=== PATIENT | female | born 1945 | race Caucasian/White ===

== ENCOUNTER 2020-08-31 20:01 | Inpatient (IN) | payer MEDICARE ==
[~2020-08-31] VITALS: Ht 162.6 cm; Wt 46.3 kg
[~2020-08-31 20:01] MED LIST changes: -OXYCODONE HCL20 M1 PO; -PROPOFOL IV EMULSION 10 MG/ML 20 ML VIAL ONE
[2020-08-31 20:58] LABS: BASOPHILS % 0.7 % (0.0-1.0); EOSINOPHILS # (AUTO) 0.1 (0.0-0.4); EOSINOPHILS % 2.7 % (0.0-6.0); HEMATOCRIT 33.5 % (34.2-44.1); HEMOGLOBIN 10.4 g/dL (12.0-16.0); LYMPHOCYTES # (AUTO) 1.1 (1.0-3.2); LYMPHOCYTES % 24.4 % (18.0-39.1); MEAN CORPUSCULAR HEMOGLOBIN 25.4 pg (28-32); MEAN CORPUSCULAR VOLUME 81.7 fL (81-99); MONOCYTES # (AUTO) 0.7 (0.2-0.8); MONOCYTES % 16.1 % (4.4-11.3); NEUTROPHILS # (AUTO) 2.5 (2.1-6.9); NEUTROPHILS % 55.9 % (38.7-80.0); PLATELET COUNT 312 x10e3/uL (140-360); RED CELL DISTRIBUTION WIDTH 16.6 % (11.7-14.4)
[2020-08-31 21:16] LABS: ALANINE AMINOTRANSFERASE 14 IU/L (0-55); ALBUMIN 3.9 g/dL (3.5-5.0); ALBUMIN/GLOBULIN RATIO 1.1 (0.8-2.0); ALKALINE PHOSPHATASE 75 IU/L (40-150); ANION GAP 14.1 mmol/L (8-16); BLOOD UREA NITROGEN 18 mg/dL (7-26); BUN/CREATININE RATIO 24 (6-25); CALCIUM 8.8 mg/dL (8.4-10.2); CARBON DIOXIDE 25 mmol/L (22-29); CHLORIDE 104 mmol/L (98-107); CREATININE, SERUM 0.76 mg/dL (0.57-1.11); EST GLOMERULAR FILTRATION RATE > 60 ML/MIN (60-); GLUCOSE 74 mg/dL (74-118); POTASSIUM 3.1 mmol/L (3.5-5.1); SODIUM 140 mmol/L (136-145)
[2020-08-31] MEDS ORDERED: ONDANSETRON HCL INJ 2MG/ML 2ML 2 MG/ML VIAL IV PRN (22:15)
[2020-08-31] MEDS ORDERED: KCL 20MEQ/.9 SOD CHL 1,000 ML IV ONE (22:15)
[2020-08-31 23:15] VITALS: BP 173/103
[2020-08-31 23:38] VITALS: BP 159/91
[2020-09-01] MEDS ORDERED: OXYCODONE HCL20 M1 PO
[2020-09-01] MEDS ORDERED: OXYCODONE HCL 20 MG TAB CR PO PRN (00:15)
[2020-09-01] MEDS ORDERED: HYDROXYZINE PAMOATE 25 MG CAP PO PRN (00:15)
[2020-09-01] MEDS: PROPRANOLOL HCL 80 MG CAPCR PO SCH ×3 (00:28→20:30)
[2020-09-01] MEDS: OXYCODONE HCL IR 5 MG TAB PO PRN ×3 (00:56→20:29)
[2020-09-01] MEDS: TEMAZEPAM 15 MG CAP PO SCH ×2 (00:56→20:29)
[2020-09-01 00:57] VITALS: BP 159/91
[2020-09-01] MEDS: LEVOTHYROXINE SODIUM 88 MCG TAB PO SCH (07:30)
[2020-09-01 08:25] VITALS: BP 162/96
[2020-09-01 08:33] VITALS: BP 162/96
[2020-09-01] MEDS: SERTRALINE HCL 50 MG TAB PO SCH (09:00)
[2020-09-01] MEDS: PRIMIDONE 50 MG TAB PO SCH ×2 (09:00→18:37)
[2020-09-01] MEDS: ASPIRIN 81 MG CHEW TAB PO SCH (09:00)
[2020-09-01] MEDS: BUPROPION HCL SR 150 MG TAB PO SCH ×2 (09:00→18:38)
[2020-09-01] MEDS ORDERED: PNEUMOCOCCAL VACCINE POLYVALENT 23 MCG/0.5 ML VIAL IM SCH (10:00)
[2020-09-01 10:12] LABS: THYROID STIMULATING HORMONE 7.909 uIU/mL (0.350-4.940)
[2020-09-01] MEDS: HYDRALAZINE HCL 20 MG/ML VIAL IV PRN ×2 (11:43→18:39)
[2020-09-01 11:54] LABS: CHOL/HDL RATIO 2.4 (3.0-3.6)
[2020-09-01 12:27] VITALS: BP 186/112
[2020-09-01] MEDS ORDERED: ALBUTEROL/IPRATROPIUM 3 ML NEB NEB PRN (15:15)
[2020-09-01] MEDS ORDERED: SALIVA SUBSTITUTE 45 ML LIQD MM PRN (15:30)
[2020-09-01 16:03] VITALS: BP 183/113
[2020-09-01] MEDS: CLONIDINE HCL 0.1 MG TAB PO PRN (18:38)
[2020-09-01] MEDS ORDERED: PROPRANOLOL HCL 80 MG CAPCR PO SCH (21:00)
[2020-09-01] MEDS ORDERED: TEMAZEPAM 15 MG CAP PO SCH (21:00)
[2020-09-02] VITALS (9 sets, daily range): BP systolic 102–164; BP diastolic 76–107
[2020-09-02 05:59] LABS: BASOPHILS % 0.8 % (0.0-1.0); EOSINOPHILS # (AUTO) 0.1 (0.0-0.4); EOSINOPHILS % 2.2 % (0.0-6.0); HEMATOCRIT 38.9 % (34.2-44.1); HEMOGLOBIN 12.2 g/dL (12.0-16.0); LYMPHOCYTES # (AUTO) 1.1 (1.0-3.2); LYMPHOCYTES % 21.3 % (18.0-39.1); MEAN CORPUSCULAR HEMOGLOBIN 25.8 pg (28-32); MEAN CORPUSCULAR HGB CONC 31.4 g/dL (31-35); MEAN CORPUSCULAR VOLUME 82.2 fL (81-99); MONOCYTES # (AUTO) 0.8 (0.2-0.8); MONOCYTES % 15.4 % (4.4-11.3); NEUTROPHILS % 60.1 % (38.7-80.0); PLATELET COUNT 380 x10e3/uL (140-360); RED BLOOD COUNT 4.73 x10e6/uL (3.6-5.1); RED CELL DISTRIBUTION WIDTH 16.4 % (11.7-14.4)
[2020-09-02] MEDS: HYDRALAZINE HCL 20 MG/ML VIAL IV PRN ×3 (06:08→15:39)
[2020-09-02 06:17] LABS: CALCIUM 9.9 mg/dL (8.4-10.2); CREATININE, SERUM 0.96 mg/dL (0.57-1.11)
[2020-09-02] MEDS ORDERED: POTASSIUM CHLORIDE 20MEQ/100ML 100 ML IV ONE (07:00)
[2020-09-02] MEDS: ASPIRIN 81 MG CHEW TAB PO SCH (08:29)
[2020-09-02] MEDS: PROPRANOLOL HCL 80 MG CAPCR PO SCH ×2 (08:30→20:50)
[2020-09-02] MEDS: BUPROPION HCL SR 150 MG TAB PO SCH ×2 (08:30→17:27)
[2020-09-02] MEDS: PRIMIDONE 50 MG TAB PO SCH ×2 (08:30→17:27)
[2020-09-02] MEDS: SERTRALINE HCL 50 MG TAB PO SCH (08:30)
[2020-09-02] MEDS: LEVOTHYROXINE SODIUM 88 MCG TAB PO SCH (08:31)
[2020-09-02] MEDS ORDERED: SODIUM CHLORIDE 0.9% 250ML 250 ML ONE (08:48)
[2020-09-02] MEDS ORDERED: SODIUM CHLORIDE 0.9% 50ML 0 ML ONE (09:50)
[2020-09-02] MEDS ORDERED: IOPAMIDOL 370 MG/ML 200 ML INFUS..BTL INJ ONE (09:51)
[2020-09-02] MEDS: CLONIDINE HCL 0.1 MG TAB PO PRN (15:39)
[2020-09-02] MEDS ORDERED: HYDRALAZINE HCL 20 MG/ML VIAL IV PRN (16:00)
[2020-09-02] MEDS: TEMAZEPAM 15 MG CAP PO SCH (20:51)
[2020-09-02] MEDS: OXYCODONE HCL IR 5 MG TAB PO PRN (22:15)
[2020-09-03] VITALS (7 sets, daily range): BP systolic 101–127; BP diastolic 71–84
[2020-09-03 07:01] LABS: ANION GAP 15.2 mmol/L (8-16); CALCIUM 9.3 mg/dL (8.4-10.2); CREATININE, SERUM 1.49 mg/dL (0.57-1.11); POTASSIUM 3.2 mmol/L (3.5-5.1)
[2020-09-03] MEDS: LEVOTHYROXINE SODIUM 88 MCG TAB PO SCH (08:28)
[2020-09-03] MEDS: PRIMIDONE 50 MG TAB PO SCH (08:28)
[2020-09-03] MEDS: SERTRALINE HCL 50 MG TAB PO SCH (08:28)
[2020-09-03] MEDS: BUPROPION HCL SR 150 MG TAB PO SCH (08:28)
[2020-09-03] MEDS: ASPIRIN 81 MG CHEW TAB PO SCH (08:28)
[2020-09-03] MEDS: PROPRANOLOL HCL 80 MG CAPCR PO SCH ×2 (08:28→08:29)
[2020-09-03] MEDS ORDERED: POTASSIUM CHLORIDE 20MEQ/100ML 100 ML IV ONE (09:30)
[2020-09-03] MEDS ORDERED: PNEUMOCOCCAL VACCINE POLYVALENT 23 MCG/0.5 ML VIAL IM SCH (10:00)
[2020-09-03] MEDS ORDERED: SODIUM CHLORIDE 0.9% 250ML 250 ML ONE (12:33)
== END 2020-09-03 14:18 | disposition home or self-care (01) | DRG 206 ==
LOC: ER 20:30 → ERHOLD 22:14 → MED/SURG3 23:23 → OBSVTOIN 09-02 07:29
PROVIDERS: ADMIT Internal Medicine; ATTEND Internal Medicine
PROC: 0DJ08ZZ Inspection of Upper Intestinal Tract, Via Natural or Artificial Opening Endoscopic (ICD-10-PCS; principal; 2020-09-02)
DX: J70.0 Acute pulmonary manifestations due to radiation (principal); E44.0 Moderate protein-calorie malnutrition; Z68.1 Body mass index [BMI] 19.9 or less, adult; K22.2 Esophageal obstruction; J69.0 Pneumonitis due to inhalation of food and vomit; Z85.818 Personal history of malignant neoplasm of other sites of lip, oral cavity, and pharynx; I10 Essential (primary) hypertension; R13.10 Dysphagia, unspecified; R53.81 Other malaise; Z11.59 Encounter for screening for other viral diseases; Z92.3 Personal history of irradiation; Y84.2 Radiological procedure and radiotherapy as the cause of abnormal reaction of the patient, or of later complication, without mention of misadventure at the time of the procedure; E03.9 Hypothyroidism, unspecified
CPT/HCPCS: 36415; 43235; 70491; 71045; 71046; 74220; 74230; 80048; 80053; 80061; 83540; 83880; 84443; 84466; 84484; 85025; 90732; 93005; 93306; 97139; 99283; G0378; J0360; J2405; J3480; J7050; Q0177; Q9967; U0002

== ENCOUNTER → 2020-08-31 | Day surgery (SDC) | payer MEDICARE, OTHER ==
[2020-08-28 16:18] LABS: BASOPHILS % 0.7 % (0.0-1.0); EOSINOPHILS # (AUTO) 0.1 (0.0-0.4); EOSINOPHILS % 3.5 % (0.0-6.0); HEMATOCRIT 35.3 % (34.2-44.1); HEMOGLOBIN 10.9 g/dL (12.0-16.0); LYMPHOCYTES # (AUTO) 0.9 (1.0-3.2); LYMPHOCYTES % 22.8 % (18.0-39.1); MEAN CORPUSCULAR HEMOGLOBIN 25.5 pg (28-32); MEAN CORPUSCULAR HGB CONC 30.9 g/dL (31-35); MEAN CORPUSCULAR VOLUME 82.7 fL (81-99); MONOCYTES # (AUTO) 0.6 (0.2-0.8); MONOCYTES % 14.1 % (4.4-11.3); NEUTROPHILS # (AUTO) 2.4 (2.1-6.9); NEUTROPHILS % 58.7 % (38.7-80.0); PLATELET COUNT 343 x10e3/uL (140-360); RED BLOOD COUNT 4.27 x10e6/uL (3.6-5.1)
[~2020-08-31] MED LIST: ASPIRIN81 MG PO; BUPROPION HCL150 MG PO; CLONIDINE HCL0.1 M1 PO; HYDROXYZINE PAM25 MG PO; LEVOTHYROXINE88 MCG PO; MYSOLINE50 MG PO; OXYCODONE HCL20 M1 PO; PROPOFOL IV EMULSION 10 MG/ML 20 ML VIAL ONE; PROPRANOLOL HCL80 MG PO; SERTRALINE HCL50 MG PO; TEMAZEPAM15 MG PO
[2020-08-31 15:45] VITALS: BP 150/88
== END | disposition home or self-care (01) ==
LOC: OR 13:01
PROVIDERS: ATTEND Internal Medicine Gastroenterology
DX: K22.2 Esophageal obstruction (principal); R11.0 Nausea; R63.4 Abnormal weight loss; K22.8 Other specified diseases of esophagus; I10 Essential (primary) hypertension; Z88.0 Allergy status to penicillin; Z01.810 Encounter for preprocedural cardiovascular examination; Z01.812 Encounter for preprocedural laboratory examination; Z11.59 Encounter for screening for other viral diseases; Z79.82 Long term (current) use of aspirin; Z85.89 Personal history of malignant neoplasm of other organs and systems; Z87.891 Personal history of nicotine dependence; Z87.01 Personal history of pneumonia (recurrent)
CPT/HCPCS: 36415; 43235; 85025; 93005; J2704; U0002